=== PATIENT | male | born 1980 | race Caucasian/White ===

== ENCOUNTER 2017-09-12 04:42 | Emergency (ER) | payer BC ==
[2017-09-12] MEDS ORDERED: PEPCID IV ONE ×2 (07:37→07:42)
[2017-09-12] MEDS ORDERED: BENADRYL IV ONE (07:38)
--- NOTE | 2017-09-12 09:00 | Emergency Department Report ---
ED General Adult HPI - General Chief complaint: Allergic Reaction Stated complaint: ALLERGIC REACTION Time Seen by Provider: 09/12/17 08:42 Source: patient Mode of arrival: Ambulatory Limitations: No Limitations - History of Present Illness Initial comments: This is a 37-year-old male who was previously unknown to this provider. He denies chronic medical conditions. Patient presents to the ER with rash. Rash happens at night. His been going on for about the past week. It is on his body , and it is itchy. Patient was medicated with slight Medrol, Pepcid and Benadryl Prior to my evaluation, and this improved his symptoms. Patient currently denies headache, neck pain, chest pain, abdominal pain, shortness of breath, sore throat, rectal pain, testicular pain. He endorses no change in his recent lifestyle habits. -: Gradual Severity scale (0 -10): 0 Improves with: medication Worsens with: none Associated Symptoms: denies other symptoms - Related Data Previous Rx's Medication Instructions Recorded Last Taken Type EPINEPHrine [Epipen 2-Ryan] 0.3 mg IM DAILY PRN #2 ml 09/12/17 Unknown Rx Famotidine [Pepcid] 20 mg PO BID #10 tablet 09/12/17 Unknown Rx diphenhydrAMINE [Benadryl] 50 mg PO Q8HR PRN #20 capsule 09/12/17 Unknown Rx Allergies Allergy/AdvReac Type Severity Reaction Status Date / Time peanut Allergy Itching Verified 09/12/17 04:46 shellfish derived Allergy Hives Verified 09/12/17 04:46 ED Review of Systems ROS: Stated complaint: ALLERGIC REACTION Other details as noted in HPI Constitutional: denies: fever Eyes: denies: eye discharge ENT: denies: epistaxis Respiratory: denies: cough Cardiovascular: denies: chest pain Gastrointestinal: denies: abdominal pain, diarrhea Genitourinary: denies: dysuria Musculoskeletal: as per HPI Skin: rash, lesions ED Past Medical Hx - Past Medical History Previous Medical History?: No - Surgical History Past Surgical History?: No - Social History Smoking Status: Never Smoker Substance Use Type: None - Medications Home Medications: Home Medications Medication Instructions Recorded Confirmed Last Taken Type EPINEPHrine [Epipen 2-Ryan] 0.3 mg IM DAILY PRN #2 ml 09/12/17 Unknown Rx Famotidine [Pepcid] 20 mg PO BID #10 tablet 09/12/17 Unknown Rx diphenhydrAMINE [Benadryl] 50 mg PO Q8HR PRN #20 capsule 09/12/17 Unknown Rx ED Physical Exam - General Limitations: No Limitations General appearance: alert, in no apparent distress - Head Head exam: Present: atraumatic, normocephalic - Eye Eye exam: Present: normal appearance, EOMI. Absent: nystagmus - ENT ENT exam: Present: normal exam, normal orophraynx, mucous membranes moist, normal external ear exam - Neck Neck exam: Present: normal inspection, full ROM - Respiratory Respiratory exam: Present: normal lung sounds bilaterally. Absent: respiratory distress - Cardiovascular Cardiovascular Exam: Present: regular rate, normal rhythm, normal heart sounds. Absent: bradycardia, tachycardia, irregular rhythm, systolic murmur, diastolic murmur, rubs, gallop - GI/Abdominal GI/Abdominal exam: Present: soft, normal bowel sounds. Absent: distended, tenderness, guarding, rebound, rigid, pulsatile mass - Rectal Rectal exam: Present: deferred - Extremities Exam Extremities exam: Present: normal inspection, full ROM, normal capillary refill. Absent: pedal edema, joint swelling, calf tenderness - Back Exam Back exam: Present: normal inspection, full ROM. Absent: tenderness, CVA tenderness (R), paraspinal tenderness, vertebral tenderness - Neurological Exam Neurological exam: Present: alert, oriented X3, CN II-XII intact, normal gait, other (Extraocular movements intact. Tongue midline. No facial droop. Facial sensation intact to light touch in the V1, V2, V3 distribution bilaterally. 5 and 5 strength in 4 extremities.. Sensation is intact to light touch in 4 extremities.). Absent: motor sensory deficit - Psychiatric Psychiatric exam: Present: normal affect, normal mood - Skin Skin exam: Present: warm, dry, intact, normal color. Absent: rash ED Course Vital Signs 09/12/17 09/12/17 09/12/17 04:46 05:12 07:00 Temperature 98.1 F 98.5 F Pulse Rate 73 72 66 Respiratory 18 16 16 Rate Blood Pressure 152/103 Blood Pressure 139/100 125/80 [Left] O2 Sat by Pulse 99 97 98 Oximetry 09/12/17 09/12/17 09/12/17 07:01 07:15 07:30 Temperature Pulse Rate Respiratory Rate Blood Pressure 125/80 120/89 122/91 Blood Pressure [Left] O2 Sat by Pulse 98 99 99 Oximetry 09/12/17 09/12/17 09/12/17 07:45 08:00 08:15 Temperature Pulse Rate Respiratory Rate Blood Pressure 135/96 134/91 127/85 Blood Pressure [Left] O2 Sat by Pulse 100 98 99 Oximetry 09/12/17 09/12/17 09/12/17 08:30 08:45 09:01 Temperature Pulse Rate Respiratory Rate Blood Pressure 132/87 131/81 132/87 Blood Pressure [Left] O2 Sat by Pulse 98 98 96 Oximetry 09/12/17 09:17 Temperature 97.9 F Pulse Rate 62 Respiratory 16 Rate Blood Pressure Blood Pressure [Left] O2 Sat by Pulse 98 Oximetry ED Medical Decision Making - Lab Data Vital Signs 09/12/17 09/12/17 09/12/17 04:46 05:12 07:00 Temperature 98.1 F 98.5 F Pulse Rate 73 72 66 Respiratory 18 16 16 Rate Blood Pressure 152/103 Blood Pressure 139/100 125/80 [Left] O2 Sat by Pulse 99 97 98 Oximetry - Medical Decision Making Differential diagnosis, including but not limited to: Allergic reaction, now resolved Assessment and plan: 37-year-old male who presents with nonspecific redness to skin only at night for about the past week. There are no obvious inciting factors. He denies headache, neck pain, chest pain, abdominal pain, shortness of breath, rectal pain, dyschezia, joint pain, arthralgias, irritative/ obstructive urinary symptoms. Patient medicated with Benadryl, Solu-Medrol, Pepcid in the emergency department, and all of his symptoms have resolved. Patient reports that this presentation is intermittent, and only happens at night for the past week. He is instructed to follow-up with her outpatient assistant sales center manager or security alarm technician specialist, and he will be discharged with appropriate medication. Given that symptoms are only present at night, I do not believe the patient requires steroids at this time. He has no airway difficulty at this time, there is no stridor or dysphonia he is speaking in full sentences. Critical care attestation.: If time is entered above; I have spent that time in minutes in the direct care of this critically ill patient, excluding procedure time. ED Disposition Clinical Impression: Rash and nonspecific skin eruption Disposition: DC-01 TO HOME OR SELFCARE Is pt being admited?: No Does the pt Need Aspirin: No Condition: Stable Instructions: Anaphylaxis (ED) Additional Instructions: Take medications as directed. Follow up with an international marketing specialist or assistant sales center manager within the next 7-10 days. Used epinephrine pen only if patient develops inability to speak, and ability to breathe. If those symptoms develop used epinephrine pen as directed, and contact 911 immediately. Return to the ER right away with fevers, chills, chest pain, shortness of breath, confusion, intractable nausea or vomiting, inability to speak, and ability to breathe. Prescriptions: diphenhydrAMINE [Benadryl] 50 mg PO Q8HR PRN #20 capsule PRN Reason: Allergic Reaction EPINEPHrine [Epipen 2-Ryan] 0.3 mg IM DAILY PRN #2 ml PRN Reason: Allergic Reaction Famotidine [Pepcid] 20 mg PO BID #10 tablet Referrals: PRIMARY CAREMD [Primary Care Provider] - 3-5 Days TANIA CHISHOLM MD [Staff Physician] - 3-5 Days Forms: Work/School Release Form(ED)
[2017-09-12 09:11] VITALS: BP 132/87
== END 2017-09-12 09:19 | disposition home or self-care (01) ==
LOC: ED 04:42
DX: R21 Rash and other nonspecific skin eruption (principal); Z91.010 Allergy to peanuts; Z91.013 Allergy to seafood
CPT/HCPCS: 96374; 96375; 99282; J1200; J2930